=== PATIENT | female | born 1995 | race Asian ===

== ENCOUNTER 2017-04-10 06:03 | Emergency (ER) | payer SELFPAY ==
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
[2017-04-10 06:33] LABS: BASOPHIL # 0.1 K/uL (0.0-0.2); BASOPHIL % 0.6 %; EOSINOPHIL # 0.2 K/uL (0.0-0.5); EOSINOPHIL % 2.7 %; HEMOGLOBIN 13.1 g/dL (11.0-15.0); IMMATURE GRANULOCYTE % 0.2 %; LYMPHOCYTE # 2.4 K/uL (0.8-4.0); LYMPHOCYTE % 29.7 %; MCH 29.4 pg (27.0-34.0); MCHC 32.8 gm/dL (32.0-36.5); MCV 89.9 fl (83.0-98.0); MONOCYTE # 0.7 K/uL (0.0-1.0); MONOCYTE % 8.8 %; MPV 9.1 fl (9.4-12.4); NEUTROPHIL # (ANC) 4.7 K/uL (1.8-7.8); NRBC % 0 /100WBC (0-0.00); PLATELET COUNT 319 K/uL (150-450); RBC 4.45 M/uL (3.50-5.00); RDW-CV 12.2 % (11.9-14.6); WBC 8.2 K/uL (4.0-11.0)
[2017-04-10 06:43] LABS: INR - (THERAPEUTIC) 1.02 (0.92-1.07); PROTIME 10.7 SECONDS (9.8-11.4); PTT 26 SECONDS (25-32)
[2017-04-10 06:52] LABS: ALBUMIN 3.6 gm/dL (3.5-5.0); ALK PHOS 54 IU/L (33-138); ALT 29 IU/L (12-78); ANION GAP 9.9 (10.0-19.0); AST 20 IU/L (10-40); BLOOD UREA NITROGEN 16 mg/dL (6-24); CALCIUM 8.6 mg/dL (8.5-10.5); CHLORIDE 110 mMol/L (96-110); CO2 24 mMol/L (22-32); CREATININE 0.8 mg/dL (0.5-1.1); ESTIMATED GFR (MDRD EQUATION) > 60; POTASSIUM 3.9 mMol/L (3.7-5.1); SODIUM 140 mMol/L (135-145); TOTAL BILIRUBIN 0.3 mg/dL (0.0-1.5); TOTAL PROTEIN 7.4 g/dL (6.0-8.4)
[2017-04-10 08:02] LABS: COLOR URINE STRAW (YELLOW); GLUCOSE URINE NEGATIVE (NEGATIVE); LEUKOCYTES URINE 25 /UL (NEGATIVE); NITRITE URINE NEGATIVE (NEGATIVE); PROTEIN URINE NEGATIVE (NEGATIVE); TURBIDITY URINE CLEAR (CLEAR)
[2017-04-10 08:03] LABS: BILIRUBIN URINE NEGATIVE (NEGATIVE); BLOOD URINE NEGATIVE /UL (NEGATIVE); KETONE URINE NEGATIVE (NEGATIVE); UROBILINOGEN URINE NORMAL (NORMAL)
[2017-04-10 08:04] LABS: EPITHELIAL URINE RARE #/HPF (NEGATIVE); RBC URINE RARE #/HPF (NEGATIVE); WBC URINE 0-2 #/HPF (NEGATIVE)
[2017-04-10 08:05] LABS: BACTERIA URINE RARE (NEGATIVE)
== END 2017-04-10 08:15 | disposition disaster alternative care site (69) ==
LOC: GACC 06:03
PROVIDERS: Family Medicine
DX: Z04.1 Encounter for examination and observation following transport accident (principal); M43.17 Spondylolisthesis, lumbosacral region; M41.9 Scoliosis, unspecified; N70.11 Chronic salpingitis
CPT/HCPCS: G0480; Q9967